=== PATIENT | female | born 2000 | race Caucasian/White ===

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

== ENCOUNTER 2019-04-17 14:34 | Emergency (ER) | payer MEDICAID ==
[~2019-04-17] VITALS: Ht 157.5 cm; Wt 50.0 kg
[2019-04-17 14:53] VITALS: BP 133/76; Ht 157.5 cm; Wt 50.0 kg
[2019-04-17 15:28] LABS: APPEARANCE HAZY (CLEAR); BILIRUBIN NEGATIVE (NEGATIVE); COLOR YELLOW (YELLOW); GLUCOSE NEGATIVE (NEGATIVE); KETONE NEGATIVE (NEGATIVE); NITRITE NEGATIVE (NEGATIVE); PROTEIN NEGATIVE (NEGATIVE); UROBILINOGEN NORMAL (NORMAL)
[2019-04-17] MEDS ORDERED: SMZ-TMP DS 800-1 TAB PO (15:33)
[2019-04-17] MEDS ORDERED: KEFLEX500 MG PO (15:33)
== END 2019-04-17 15:50 | disposition home or self-care (01) ==
LOC: D.ER 14:34
PROVIDERS: Family Medicine
DX: L73.9 Follicular disorder, unspecified (principal); N76.2 Acute vulvitis; L03.90 Cellulitis, unspecified

== ENCOUNTER 2019-08-10 12:50 | Emergency (ER) | payer MEDICAID ==
[~2019-08-10] VITALS: Ht 157.5 cm; Wt 50.0 kg
[~2019-08-10 12:50] MED LIST: KEFLEX500 MG PO; SMZ-TMP DS 800-1 TAB PO
[2019-08-10 13:03] VITALS: Ht 157.5 cm; Wt 50.0 kg
[2019-08-10] MEDS ORDERED: AMOXICILLIN500 M1 PO (14:02)
[2019-08-10] MEDS ORDERED: STERAPRED DS 1010 MG PO (14:02)
[2019-08-10 14:28] VITALS: BP 122/68
== END 2019-08-10 14:29 | disposition home or self-care (01) ==
LOC: D.ER 12:50
DX: J02.0 Streptococcal pharyngitis (principal)